=== PATIENT | male | born 1980 | race Caucasian/White ===

== ENCOUNTER 2016-10-17 16:57 | Emergency (ER) | payer BC ==
[2016-10-17 19:23] VITALS: BP 171/84
--- NOTE | 2016-10-17 20:29 | UC ---
Skin Complaint HPI - HPI Summary HPI Summary: 4 days of worsening pain on left side of perineum noticed a small lump - History of Current Complaint Chief Complaint: UCGeneralIllness Time Seen by Provider: 10/17/16 20:04 Stated Complaint: RECTAL DISCOMFORT Hx Obtained From: Patient Onset/Duration: Gradual Onset, Lasting Days - 4-5, Still Present Timing: Constant Onset Severity: Mild Current Severity: Moderate Pain Intensity: 6 Pain Scale Used: 0-10 Numeric Location: Discrete - left side of perineum Character: Pain, Raised Aggravating: Touch Associated Signs & Symptoms: Positive: Negative - Allergy/Home Medications Allergies/Adverse Reactions: Allergies Allergy/AdvReac Type Severity Reaction Status Date / Time No Known Allergies Allergy Verified 10/17/16 19:16 Home Medications: Home Medications Ibuprofen TAB* [Advil TAB*] 400 mg PO PRN 10/17/16 [History] Review of Systems Constitutional: Negative Skin: Other - small less than dime size swelling on left side of perineium, no erythema, no drainage Eyes: Negative ENT: Negative Respiratory: Negative Cardiovascular: Negative Gastrointestinal: Negative Genitourinary: Negative Motor: Negative Neurovascular: Negative Musculoskeletal: Negative Neurological: Negative Psychological: Negative All Other Systems Reviewed And Are Negative: Yes - Comments Additional Review of Systems Comments: patient has sexual relationships with women does not practice receptive anal intercourse PMH/Surg Hx/FS Hx/Imm Hx Previously Healthy: Yes - Surgical History Surgical History: None - Family History Known Family History: Positive: None Family History: no cardiovascular issues in family lineage - Social History Occupation: Employed Full-time - landscaping Lives: With Family Alcohol Use: Occasionally Substance Use Type: None Smoking Status (MU): Never Smoked Tobacco Have You Smoked in the Last Year: No - Immunization History Most Recent Influenza Vaccination: doesn't get Physical Exam Triage Information Reviewed: Yes Appearance: Well-Appearing, No Pain Distress, Well-Nourished Vital Signs: Initial Vital Signs Temp 98.9 F 10/17/16 19:16 Pulse 78 10/17/16 19:16 Resp 17 10/17/16 19:16 BP 171/84 10/17/16 19:16 Pulse Ox 98 10/17/16 19:16 Vital Signs Reviewed: Yes Eye Exam: Normal Eyes: Positive: Conjunctiva Clear ENT Exam: Normal ENT: Positive: Normal ENT inspection, Hearing grossly normal. Negative: Nasal congestion, Nasal drainage, Trismus, Muffled/hoarse voice Dental Exam: Normal Neck exam: Normal Neck: Positive: Supple, Nontender, No Lymphadenopathy Respiratory Exam: Normal Respiratory: Positive: Normal breath sounds, No respiratory distress, No accessory muscle use Cardiovascular Exam: Normal Cardiovascular: Positive: RRR, No Murmur, Pulses Normal, Brisk Capillary Refill Abdominal Exam: Normal Abdomen Description: Positive: Nontender, No Organomegaly, Soft. Negative: CVA Tenderness (R), CVA Tenderness (L), Distended, Hernia @, Hepatomegaly, McBurney' s Point Tenderness, Peritoneal Signs Bowel Sounds: Positive: Present Musculoskeletal Exam: Normal Musculoskeletal: Positive: Strength Intact, ROM Intact, No Edema Neurological Exam: Normal Neurological: Positive: Alert, Muscle Tone Normal Psychological Exam: Normal Skin: Positive: Other - less than dime size cyst on left side of perineum, excessive amount of hair and patient reports not shaving, tender to touch , no erythema, no fluctulance Course/Dx - Course Course Of Treatment: sitz bath, warm compress, pain contraol, antibiodic, return or follow with PCP for continued or increase of pain, or fever - Differential Diagnoses - Skin Complaint Differential Diagnoses: Abscess, Urticaria - Diagnoses Provider Diagnoses: Perineal cyst Discharge - Discharge Plan Condition: Stable Disposition: HOME Prescriptions: Hydrocodone-Acetaminophen [Hydrocodone/Acetaminophen 5-325 mg] 1 tab PO QID PRN #12 tab MDD 4 PRN Reason: Pain Ibuprofen TAB* [Motrin TAB* 800 MG] 800 mg PO TID PRN #24 tab PRN Reason: pain Sulfamethox/Trimethoprim DS* [Bactrim DS 800/160 TAB*] 1 tab PO BID #20 tab Patient Education Materials: Abscess (ED), Heat Pack Application (ED) Referrals: Aura Kaur DO [Primary Care Provider] - If Needed Additional Instructions: Follow up with Pcp or return to urgent care if needed for Drainage of abscess should it not drain on its own
== END 2016-10-17 20:25 | disposition home or self-care (01) ==
LOC: UCEAST 16:57
DX: K66.8 Other specified disorders of peritoneum (principal)
CPT/HCPCS: 99202; G0463

== ENCOUNTER 2016-10-18 18:49 | Emergency (ER) | payer BC ==
[2016-10-18 19:14] VITALS: BP 150/95
[2016-10-18] MEDS ORDERED: Ibuprofen TAB* 800 MG PO ONE (21:15)
[2016-10-18] MEDS ORDERED: Sulfamethox/Trimethoprim DS 800/160* TAB PO ONE (21:15)
--- NOTE | 2016-10-18 21:28 | ED ---
Agustín Goodman Karl, scribed for Cain Hammond MD on 10/18/16 at 2050 . Skin Complaint - HPI Summary HPI Summary: 35 y/o M presents with a eric-anal abscess on the left side of his anus for the past 3 days. Pt was given Bactrim at urgent care. Pt stated that his pain has worsened since to a 9/10 and is aggravated by pressure, therefore he decided to come to the ED. Pt has no other complaints. - History of Current Complaint Chief Complaint: EDRashSkinAbscess Time Seen by Provider: 10/18/16 20:38 Stated Complaint: ABCESS Hx Obtained From: Patient Onset/Duration: Started Days Ago - 3, Atraumatic, Worse Since Timing: Constant Onset Severity: Moderate Current Severity: Moderate Pain Intensity: 9 - rectal pain Pain Scale Used: 0-10 Numeric Skin Location: Other: - anus Character: Pain Aggravating Symptom(s): Other: - pressure Alleviating Symptom(s): Nothing - Allergy/Home Medications Allergies/Adverse Reactions: Allergies Allergy/AdvReac Type Severity Reaction Status Date / Time No Known Allergies Allergy Verified 10/17/16 19:16 PMH/Surg Hx/FS Hx/Imm Hx Previously Healthy: Yes Infectious Disease History: No Infectious Disease History: Denies: Traveled Outside the [place] in Last 30 Days - Family History Known Family History: Negative: Cardiac Disease Family History: no cardiovascular issues in family lineage - Social History Alcohol Use: Occasionally Substance Use Type: Reports: None Smoking Status (MU): Never Smoked Tobacco Have You Smoked in the Last Year: No Review of Systems Constitutional: Negative Eyes: Negative ENT: Negative Cardiovascular: Negative Respiratory: Negative Gastrointestinal: Negative Genitourinary: Negative Musculoskeletal: Negative Skin: Other - eric-anal abscess to the left of anus Neurological: Negative Psychological: Normal All Other Systems Reviewed And Are Negative: Yes Physical Exam - Summary Physical Exam Summary: Vital signs: reviewed General: Patient is comfortable lying in stretcher with no signs of distress HEENT: within normal limits Lungs: CTA B/L CVS: S1 & S2 present. No murmurs appreciated. ABDOMEN: Soft, non-tender. No signs of distention. No rebound no guarding, and no masses palpated. Bowel sounds are normal. Rectal exam: No fissure were palpated. There is a perirectal abcess present. It is very tender. EXTREMITIES: FROM in all major joints, no edema, no cyanosis or clubbing. NEURO: Alert and oriented x 3. No acute neurological deficits. Speech is normal and follows commands. SKIN: Dry and warm Triage Information Reviewed: Yes Vital Signs On Initial Exam: Initial Vitals Temp Pulse Resp BP Pulse Ox 97.5 F 88 20 150/95 100 10/18/16 19:09 10/18/16 19:09 10/18/16 19:09 10/18/16 19:09 10/18/16 19:09 Vital Signs Reviewed: Yes Diagnostics - Vital Signs Vital Signs Temp Pulse Resp BP Pulse Ox 10/18/16 19:09 97.5 F 88 20 150/95 100 - Laboratory Lab Statement: Any lab studies that have been ordered have been reviewed, and results considered in the medical decision making process. Course/Dx - Course Course Of Treatment: Procedure - Incision and Drainage. Patient positioned appropriately, 4 cc lidocaine with/without epinephrine was used as a local anesthetic. #11 blade scalpel used for single incision. Additional local anesthetic injected into surrounding viable tissue prior to blunt dissection of loculated adhesions. Copious drainage of pus was expressed (culture obtained). Wound packed with iodoform gauze. Procedure tolerated without complications. Wound dressed with sterile 4x4 gauze and paper tape. Assessment/Plan: 35 y/o M presents with a perianal abscess on the left side of his anus for the past 3 days. Pt was given Bactrim at urgent care. Pt stated that his pain has worsened since to a 9/10 and is aggravated by pressure, therefore he decided to come to the ED. Pt has no other complaints. Using the bedside U/S I visualized the abscess and successfully I drained the abscess. There was a copious amount of purulent yellow discharge. He felt better after the procedure. He was given Ibuprofen and Bactrim. He will f/u in 2 3 days for wound check. I discussed all the findings with the patient. Patient was instructed to return to the emergency room immediately if any of the symptoms return or worsens. Plan of care was discussed with the patient and understands and agrees. All questions were answered at patient satisfaction. There were no further complaints or concerns. P/E: Lungs: CTA B/L. Good air exchange. No wheezing or crackles heard. CVS: S1 and S2 present. No murmurs appreciated. Patient is alert and oriented x 3. Patient is hemodynamically stable. Patient will be discharged home with follow up PMD or return to the ED or urgent care in the next 2-3 days for wound culture. - Differential Diagnoses - Skin Complaint Differential Diagnoses: Cellulitis, Other - Perirectal abscess - Diagnoses Provider Diagnoses: Perirectal abscess Discharge - Discharge Plan Condition: Stable Disposition: HOME Patient Education Materials: Rectal Abscess (ED) Referrals: Aura Kaur DO [Primary Care Provider] - Additional Instructions: Please follow up with your primary care provider. Return to the emergency department for changing or worsening symptoms. The documentation as recorded by the Agustín patel Karl accurately reflects the service I personally performed and the decisions made by , Cain Hammond MD.
== END 2016-10-18 22:19 | disposition home or self-care (01) ==
LOC: ED 18:49
DX: K61.0 Anal abscess (principal); K62.89 Other specified diseases of anus and rectum
CPT/HCPCS: 87070; 87076; 87077; 87205; 99282; A9270-GY